=== PATIENT | female | born 1940 | race Caucasian/White ===

== ENCOUNTER 2021-01-18 12:26 | Outpatient (CLI) | payer MEDICARE | END 2021-01-18 12:27 | disposition home or self-care (01) | LOC: CSHMRI 12:26 | PROVIDERS: ATTEND Anesthesiology Pain Medicine | DX: M48.062 Spinal stenosis, lumbar region with neurogenic claudication (principal); M47.816 Spondylosis without myelopathy or radiculopathy, lumbar region; M41.86 Other forms of scoliosis, lumbar region; M51.36 Other intervertebral disc degeneration, lumbar region | CPT/HCPCS: 72148 ==

== ENCOUNTER 2022-12-10 18:34 | Inpatient (IN) | payer MEDICARE ==
[2022-12-10] MEDS ORDERED: Meclizine HCl 25 MG TAB ONE (19:35)
[2022-12-10 19:48] LABS: #Basophils 0.2 10x3/uL (0.0-0.2); #Eosinphils 0.7 10x3/uL (0.0-0.5); #Monocytes 0.7 10x3/uL (0.0-1.1); #Neutrophils 3.8 10x3/uL (1.5-8.4); %Basophils 1.9 % (0.0-2.0); %Eosinophils 8.9 % (0.0-6.0); %Lymphocytes 34.8 % (18.0-47.0); %Monocytes 8.2 % (0.0-10.0); %Neutrophils 45.7 % (40.0-75.0); Hemoglobin 14.1 g/dL (12.0-15.5); Mean Corpuscular HGB CONC 34.1 g/dL (32.0-36.0); Mean Corpuscular Hemoglobin 30.8 pg (27.0-33.0); Mean Corpuscular Volume 90.2 fl (81.6-98.3); Mean Platelet Volume 9.4 fl (7.4-10.4); Platelet Count 219 10x3/uL (150-450); RBC Distribution Width 14.3 % (11.5-14.5); Red Blood Cell (RBC) Count 4.58 10x6/uL (3.90-5.03); White Blood Cell (WBC) Count 8.3 10x3/uL (3.5-10.5)
[2022-12-10 19:54] LABS: ALT (SGPT) 23 U/L (8-55); AST (SGOT) 46 U/L (5-34); Albumin 4.1 g/dL (3.4-4.8); Alkaline Phosphatase 84 U/L (40-110); Anion Gap 14 mmol/L (10-20); BUN (Urea Nitrogen) 16 mg/dL (9.8-20.1); Bilirubin, Total 0.7 mg/dL (0.2-1.2); Calc. Creatinine Clearance 0 mL/min (70-130); Calcium 9.1 mg/dL (7.8-10.44); Carbon Dioxide 24 mmol/L (23-31); Chloride 98 mmol/L (98-107); Estimated GFR 55; Globulin 2.4 g/dL (2.4-3.5); Glucose 124 mg/dL (83-110); Potassium 3.9 mmol/L (3.5-5.1); Protein, Total 6.5 g/dL (5.8-8.1); Sodium 132 mmol/L (136-145)
[2022-12-10 20:14] LABS: Bilirubin Neg (Negative); Blood, Urine Negative (Negative); Clarity Slightly Cloudy (Clear); Glucose, Urine (Dipstick) 250 mg/dL (Negative); Ketone, Urine Negative (Negative); Leukocyte Negative (Negative); Nitrite Negative (Negative); Protein, Urine (Dipstick) Negative (Neg-Trace); Urobilinogen Normal mg/dL (Less than 2)
[2022-12-10] MEDS ORDERED: Calcium Carbonate 500 MG ChewTAB PO PRN (21:06)
[2022-12-10] MEDS ORDERED: Senokot S 8.6-50 MG TAB PO PRN (21:06)
[2022-12-10] MEDS ORDERED: Ondansetron PF 4 MG/2 ML Vial IVP PRN (21:06)
[2022-12-10] MEDS ORDERED: Dextrose 5% in Water 1,000 ML IV PRN (21:06)
[2022-12-10] MEDS ORDERED: Acetaminophen 325 MG TAB PO PRN (21:06)
[2022-12-10] MEDS ORDERED: Guaifenesin DM 100-10/5 ML UDCUP PO PRN (21:06)
[2022-12-10] MEDS ORDERED: Dextrose 50% Abboject 50 ML SYRINGE SLOW IVP PRN (21:06)
[2022-12-10] MEDS ORDERED: Zolpidem Tartrate 5 MG TAB PO SCH (23:30)
[2022-12-10] MEDS ORDERED: Atorvastatin Calcium 40 MG TAB PO SCH (23:30)
[2022-12-10] MEDS ORDERED: Oxybutynin 5 MG TAB PO SCH (23:45)
[2022-12-10] MEDS ORDERED: Losartan Potassium 50 MG TAB PO SCH (23:45)
[2022-12-11 01:12] VITALS: BMI 29.4
[2022-12-11] MEDS: Levothyroxine 150 MCG TAB PO SCH (05:52)
[2022-12-11] MEDS: Levothyroxine Sodium 25 MCG TAB PO SCH (05:52)
[2022-12-11 05:56] LABS: Anion Gap 12 mmol/L (10-20); BUN (Urea Nitrogen) 13 mg/dL (9.8-20.1); Calc. Creatinine Clearance 65 mL/min (70-130); Calcium 8.6 mg/dL (7.8-10.44); Carbon Dioxide 23 mmol/L (23-31); Chloride 101 mmol/L (98-107); Estimated GFR 70; Glucose 109 mg/dL (83-110); Magnesium 1.7 mg/dL (1.6-2.6); Potassium 3.4 mmol/L (3.5-5.1); Sodium 133 mmol/L (136-145)
[2022-12-11 06:13] LABS: SARS-CoV-2 NAA Rapid Test Not Detected (NotDetected)
[2022-12-11 06:18] LABS: Thyroid Stimulating Hormone 5.2109 uIU/mL (0.35-4.94)
[2022-12-11] MEDS: Cyanocobalamin (Vitamin B-12) 1,000 MCG TAB PO SCH (09:00)
[2022-12-11] MEDS: Glimepiride 4 MG TAB PO SCH (09:00)
[2022-12-11] MEDS: Meclizine HCl 12.5 MG TAB PO SCH ×2 (09:00→20:45)
[2022-12-11] MEDS: Aspirin 81 mg Enteric Coated Tablet PO SCH (09:00)
[2022-12-11] MEDS: Bupropion 150 MG SR TAB PO SCH (09:00)
[2022-12-11] MEDS: Losartan Potassium 50 MG TAB PO SCH (09:01)
[2022-12-11] MEDS: metFORMIN 500 MG TAB PO SCH ×2 (09:01→17:31)
[2022-12-11] MEDS: Alogliptin 25 MG TAB PO SCH (09:01)
[2022-12-11] MEDS: Oxybutynin 5 MG TAB PO SCH (09:02)
[2022-12-11] MEDS ORDERED: Electrolyte Replacement Protocol 1 EACH FS SCH (10:45)
[2022-12-11] MEDS ORDERED: Magnesium 2 GM/50 ML(in water) 2 GM in Premix Bag 1 BAG IVPB SCH (11:00)
[2022-12-11] MEDS ORDERED: Potassium Bicarbonate/Cit Ac 20 MEQ TAB PO SCH (11:00)
[2022-12-11 11:55] LABS: Hemoglobin A1c 7.1 % (4.0-6.0)
[2022-12-11] MEDS: Atorvastatin Calcium 40 MG TAB PO SCH (20:45)
[2022-12-11] MEDS: Zolpidem Tartrate 5 MG TAB PO SCH (20:45)
[2022-12-12] MEDS: Levothyroxine 150 MCG TAB PO SCH (06:33)
[2022-12-12] MEDS: Levothyroxine Sodium 25 MCG TAB PO SCH (06:33)
[2022-12-12 07:18] LABS: ALT (SGPT) 20 U/L (8-55); AST (SGOT) 39 U/L (5-34); Albumin 3.7 g/dL (3.4-4.8); Alkaline Phosphatase 71 U/L (40-110); Anion Gap 12 mmol/L (10-20); BUN (Urea Nitrogen) 13 mg/dL (9.8-20.1); Bilirubin, Total 0.8 mg/dL (0.2-1.2); Calc. Creatinine Clearance 59 mL/min (70-130); Calcium 8.9 mg/dL (7.8-10.44); Carbon Dioxide 24 mmol/L (23-31); Chloride 104 mmol/L (98-107); Estimated GFR 62; Globulin 2.6 g/dL (2.4-3.5); Glucose 117 mg/dL (83-110); Magnesium 2.7 mg/dL (1.6-2.6); Phosphorus 2.9 mg/dL (2.3-4.7); Potassium 4.1 mmol/L (3.5-5.1); Protein, Total 6.3 g/dL (5.8-8.1); Sodium 136 mmol/L (136-145)
[2022-12-12] MEDS: Bupropion 150 MG SR TAB PO SCH (09:43)
[2022-12-12] MEDS: Cyanocobalamin (Vitamin B-12) 1,000 MCG TAB PO SCH (09:43)
[2022-12-12] MEDS: Glimepiride 4 MG TAB PO SCH (09:45)
[2022-12-12] MEDS: Oxybutynin 5 MG TAB PO SCH (09:45)
[2022-12-12] MEDS: Losartan Potassium 50 MG TAB PO SCH (09:46)
[2022-12-12] MEDS: metFORMIN 500 MG TAB PO SCH ×2 (09:46→17:27)
[2022-12-12] MEDS: Aspirin 81 mg Enteric Coated Tablet PO SCH (09:47)
[2022-12-12] MEDS: Meclizine HCl 12.5 MG TAB PO SCH (09:48)
[2022-12-12] MEDS: Alogliptin 25 MG TAB PO SCH (09:48)
[2022-12-12] MEDS: Atorvastatin Calcium 40 MG TAB PO SCH (21:25)
[2022-12-12] MEDS: Zolpidem Tartrate 5 MG TAB PO SCH (21:26)
[2022-12-13 05:37] LABS: Anion Gap 13 mmol/L (10-20); BUN (Urea Nitrogen) 16 mg/dL (9.8-20.1); Calc. Creatinine Clearance 60 mL/min (70-130); Calcium 8.8 mg/dL (7.8-10.44); Carbon Dioxide 22 mmol/L (23-31); Chloride 105 mmol/L (98-107); Estimated GFR 63; Glucose 101 mg/dL (83-110); Sodium 136 mmol/L (136-145)
[2022-12-13] MEDS: Levothyroxine 150 MCG TAB PO SCH (06:12)
[2022-12-13] MEDS: Levothyroxine Sodium 25 MCG TAB PO SCH (06:12)
[2022-12-13] MEDS: metFORMIN 500 MG TAB PO SCH (09:09)
[2022-12-13] MEDS: Aspirin 81 mg Enteric Coated Tablet PO SCH (09:10)
[2022-12-13] MEDS: Losartan Potassium 50 MG TAB PO SCH (09:10)
[2022-12-13] MEDS: Alogliptin 25 MG TAB PO SCH (09:10)
[2022-12-13] MEDS: Glimepiride 4 MG TAB PO SCH (09:10)
[2022-12-13] MEDS: Oxybutynin 5 MG TAB PO SCH (09:11)
[2022-12-13] MEDS: Bupropion 150 MG SR TAB PO SCH (09:11)
[2022-12-13] MEDS: Cyanocobalamin (Vitamin B-12) 1,000 MCG TAB PO SCH (09:12)
[2022-12-13] MEDS ORDERED: Lactated Ringer's 500 ML IV SCH (10:15)
[2022-12-13 13:34] VITALS: BP 133/62; TEMP 97.8
== END 2022-12-13 13:20 | DRG 552 ==
LOC: CSHERS 18:34 → CSHTELE 22:41 → OBSVTOIN 12-13 10:34
PROVIDERS: ADMIT Student in an Organized Health Care Education/Training Program; ATTEND Internal Medicine
DX: M48.02 Spinal stenosis, cervical region (principal); E87.1 Hypo-osmolality and hyponatremia; R42 Dizziness and giddiness; Z20.822 Contact with and (suspected) exposure to COVID-19; M51.36 Other intervertebral disc degeneration, lumbar region; Z66 Do not resuscitate; I10 Essential (primary) hypertension; M19.90 Unspecified osteoarthritis, unspecified site; E11.9 Type 2 diabetes mellitus without complications; Z96.611 Presence of right artificial shoulder joint; R32 Unspecified urinary incontinence; Z60.2 Problems related to living alone; E78.5 Hyperlipidemia, unspecified; F41.9 Anxiety disorder, unspecified; E03.9 Hypothyroidism, unspecified; G47.30 Sleep apnea, unspecified; I25.10 Atherosclerotic heart disease of native coronary artery without angina pectoris; Z79.82 Long term (current) use of aspirin; Z79.899 Other long term (current) drug therapy; Z79.890 Hormone replacement therapy; Z79.84 Long term (current) use of oral hypoglycemic drugs; Z88.0 Allergy status to penicillin; Z88.8 Allergy status to other drugs, medicaments and biological substances; Z86.73 Personal history of transient ischemic attack (TIA), and cerebral infarction without residual deficits; Z90.49 Acquired absence of other specified parts of digestive tract; Z90.710 Acquired absence of both cervix and uterus; Z82.49 Family history of ischemic heart disease and other diseases of the circulatory system
CPT/HCPCS: 36415; 36416; 70450; 70551; 71045; 72125; 72141; 80048; 80053; 81003; 82607; 83036; 83735; 84100; 84439; 84443; 84484; 85025; 93005; 93880; 94760; 96360; 96361; 96372; 96374; 96375; G0378; J1650; J2405; J3475; J7120; U0002

== ENCOUNTER 2023-08-29 05:53 | Emergency (ER) | payer OTHER, MEDICARE ==
[2023-08-29 08:21] LABS: SARS-CoV-2 NAA Rapid Test DETECTED (NotDetected)
[2023-08-29] MEDS ORDERED: Acetaminophen 500 MG TAB ONE (08:59)
[2023-08-29] MEDS ORDERED: Lidocaine Viscous Sol 2% 15 ml UD Cup SSP SCH (09:00)
== END 2023-08-29 09:13 | disposition home or self-care (01) ==
LOC: CSHERS 05:53
DX: S01.01XA Laceration without foreign body of scalp, initial encounter (principal); U07.1 COVID-19; M25.559 Pain in unspecified hip; E11.9 Type 2 diabetes mellitus without complications; I10 Essential (primary) hypertension; Z79.899 Other long term (current) drug therapy; Z79.84 Long term (current) use of oral hypoglycemic drugs; Z79.82 Long term (current) use of aspirin; W01.0XXA Fall on same level from slipping, tripping and stumbling without subsequent striking against object, initial encounter
CPT/HCPCS: 0240U; 70450; 72220; 12001